=== PATIENT | male | born 1965 | race Caucasian/White ===

== ENCOUNTER 2021-05-24 18:26 | Inpatient (IN) | payer OTHER ==
[~2021-05-24] VITALS: Ht 165.1 cm; Wt 82.8 kg
[2021-06-01 00:33] VITALS: BP 116/84
== END 2021-06-01 02:23 | disposition home or self-care (01) | DRG 871 ==
LOC: ED 19:07 → EDIP 20:50 → 5SO 20:53
PROVIDERS: ADMIT Internal Medicine; ATTEND Family Medicine
PROC: 0H9JX0Z Drainage of Left Upper Leg Skin with Drainage Device, External Approach (ICD-10-PCS; principal; 2021-05-27)
DX: A41.01 Sepsis due to Methicillin susceptible Staphylococcus aureus (principal); I21.A1 Myocardial infarction type 2; J18.0 Bronchopneumonia, unspecified organism; J96.01 Acute respiratory failure with hypoxia; R65.21 Severe sepsis with septic shock; C15.9 Malignant neoplasm of esophagus, unspecified; E87.1 Hypo-osmolality and hyponatremia; I48.92 Unspecified atrial flutter; L03.116 Cellulitis of left lower limb; N17.9 Acute kidney failure, unspecified; D64.9 Anemia, unspecified; E66.9 Obesity, unspecified; E78.00 Pure hypercholesterolemia, unspecified; F19.10 Other psychoactive substance abuse, uncomplicated; I11.0 Hypertensive heart disease with heart failure; I16.0 Hypertensive urgency; I45.10 Unspecified right bundle-branch block; W18.39XA Other fall on same level, initial encounter; S70.12XA Contusion of left thigh, initial encounter; I48.0 Paroxysmal atrial fibrillation; I50.9 Heart failure, unspecified; Z92.21 Personal history of antineoplastic chemotherapy; Z92.3 Personal history of irradiation; Y93.89 Activity, other specified; Y92.89 Other specified places as the place of occurrence of the external cause; Y99.8 Other external cause status
CPT/HCPCS: 10030; 36415; 75989; 84145; 96372; 99285; J3490